=== PATIENT | male | born 1970 | race Caucasian/White ===

== ENCOUNTER 2020-05-27 07:45 | Outpatient (CLI) | payer OTHER, SELFPAY ==
[2020-05-27 10:41] LABS: Alanine Aminotransferase 61 U/L (16-63); Albumin Level 4.1 g/dL (3.4-5.0); Alkaline Phosphatase 107 U/L (46-116); Anion Gap 11 mmol/L (8-16); Aspartate Amino Transferase 26 U/L (15-37); Bilirubin,Total 0.8 mg/dL (0.00-1.00); Blood Urea Nitrogen 16 mg/dL (7-18); Calcium 9.3 mg/dL (8.5-10.1); Carbon Dioxide 25 mmol/L (21-32); Chloride 105 mmol/L (98-108); Cholesterol 220 mg/dL (0-200); Estimated Glomerular Filt Rate > 60; Glucose 113 mg/dL (70-99); HDL Direct 68 mg/dL (40-60); LDL Cholesterol Calculated 136 mg/dL (<130); Osmolality Calculated 294 mOsm/kg (285-295); Potassium 4.6 mmol/L (3.5-5.1); Sodium 141 mmol/L (136-145); Thyroid Stimulating Hormone 1.34 uIU/mL (0.36-3.74); Total Protein 7.8 g/dL (6.4-8.2); Triglycerides 80 mg/dL (0-150)
[2020-05-27 10:47] LABS: Basophils Absolute Auto 0.05 K/mm3 (0.00-0.10); Basophils Percent Auto 0.8 % (0.0-1.0); Eosinophils Absolute Auto 0.19 K/mm3 (0.02-0.50); Eosinophils Percent Auto 2.9 % (1.0-6.0); Hematocrit 40.3 % (40.0-54.0); Hemoglobin 13.7 g/dL (14.0-18.0); Immature Granulocyte Absolute 0.03 K/mm3 (0.00-0.00); Immature Granulocyte Percent A 0.5 % (0.0-0.0); Lymphocytes Absolute Auto 1.24 K/mm3 (1.10-4.50); Lymphocytes Percent Auto 18.8 % (18.0-42.0); Mean Corpuscular Hemoglobin 29.6 pg (27.0-31.0); Mean Platelet Volume 11.7 fl (8.7-11.0); Monocytes Absolute Auto 0.57 K/mm3 (0.10-0.90); Monocytes Percent Auto 8.7 % (2.0-11.0); Neutrophils Absolute Auto 4.5 K/mm3 (1.7-7.2); Neutrophils Percent Auto 68.3 % (50.0-70.0); Platelet Count Result 249 K/mm3 (150-420); Red Blood Count 4.63 M/mm3 (4.70-6.10); White Blood Count 6.6 K/mm3 (4.8-10.8)
[2020-05-28 09:57] LABS: Add Urine Microscopic? NO; Appearance Urine Clear (Clear); Bilirubin Urine Negative (Negative); Blood Urine Negative (Negative); Color Urine Yellow (Yellow); Glucose Urine UA Negative (Negative); Ketones Urine Negative (Negative); Leukocyte Esterase Ur Negative (Negative); Nitrate Urine Negative (Negative); Protein Urine Negative (Negative); Specific Grav Ur 1.025 (1.010-1.020); Urobilinogen Urine 0.2 mg/dL (0.2-1.0)
[2020-05-30 10:55] LABS: Hemoglobin A1C 5.5 % (<5.7)
== END 2020-05-27 07:46 | disposition home or self-care (01) ==
LOC: CHSLAB 07:50
PROVIDERS: PCP Internal Medicine; Visit Provider Internal Medicine
DX: Z00.00 Encounter for general adult medical examination without abnormal findings (principal); Z01.84 Encounter for antibody response examination; R73.01 Impaired fasting glucose
CPT/HCPCS: 36415; 80053; 80061; 81003; 83036; 84443; 85025; 86769

== ENCOUNTER 2022-11-11 23:00 | Emergency (ER) | payer OTHER, SELFPAY ==
[2022-11-11 23:05] VITALS: BP 133/84; PULSE 80; RESP 18; TEMP 36.6; O2SAT 96
--- NOTE | 2022-11-11 23:07 | ED.EAR ---
HPI - Ear Problem General Chief complaint: Ear Stated complaint: Ear Source: patient Mode of arrival: ambulatory Limitations: no limitations History of Present Illness HPI Narrative: 51-year-old male with a history of recurrent sinusitis presents to the ER a 10 hour history of -- tinnitus in the left ear. No hearing loss. No focal neuro deficits. No headache. no vertigo. no ear pain or discharge. Location: left ear Duration: constant Severity: moderate Relieving factors: nothing Exacerbating factors: nothing Discharge from ear: Reports no Treatment prior to arrival: none Related Data Home Medications Medication Instructions Recorded Confirmed albuterol sulfate 90 mcg/actuation 1 inh inhalation Q4-6H PRN 11/11/22 11/11/22 breath activated powder inhaler Shortness Of Breath Or Wheezing duloxetine 20 mg capsule,delayed 20 mg PO DAILY 11/11/22 11/11/22 release montelukast 10 mg tablet 10 mg PO DAILY 11/11/22 11/11/22 (Singulair) pantoprazole 40 mg tablet,delayed 40 mg PO DAILY 11/11/22 11/11/22 release verapamil 240 mg tablet,extended 240 mg PO DAILY 11/11/22 11/11/22 release Allergies Allergy/AdvReac Type Severity Reaction Status Date / Time No Known Allergies Allergy Verified 07/09/19 23:45 Review of Systems Review of Systems: All systems reviewed & are unremarkable except as noted in HPI and below Constitutional: Constitutional: Reports as per HPI and Reports no additional constitutional complaints Eyes: Eyes: Reports as per HPI and Reports no additional eye complaints ENT: Reports system reviewed and no additional complaints, except as documented and Reports as per HPI Comments: History of sinus fullness. Cardiovascular: Cardiovascular: Reports as per HPI and Reports no additional cardiovascular complaints Respiratory: Respiratory: Reports as per HPI and Reports no additional respiratory complaints Gastrointestinal: Gastrointestinal: Reports as per HPI and Reports no additional gastrointestinal complaints Genitourinary: Genitourinary: Reports no additional male genitourinary complaints and Reports as per HPI Musculoskeletal: Musculoskeletal: Reports no additional musculoskeletal complaints and Reports as per HPI Integumentary/Breasts: Skin/Breast: Reports system reviewed and no additional complaints, except as docu and Reports as per HPI Neurologic: Reports system reviewed and no additional complaints, except as documented and Reports as per HPI Psychiatric: Psychiatric: Reports no additional psychiatric complaints and Reports as per HPI Endocrine: Endocrine: Reports no additional endocrine complaints and Reports as per HPI Hematologic/Lymphatic: Hematologic/Lymphatic: Reports no additional hematologic/lymphatic complaints and Reports as per HPI Allergic/Immunologic: Allergic/Immunologic: Reports no additional allergic/immunologic complaints and Reports as per HPI PMFSH Past Medical History Medical History (Updated 11/11/22 @ 23:35 by Flo Galaviz MD) Hypertension No active medical problems Surgical History Surgical History History of elbow surgery Family History Family History Father No problems noted. Social History Social History Alcohol use details: does not drink alcohol Substance use: never Living arrangements: with family Gender identity (if verbalized by the patient): Male Exam Const: General: healthy appearing and no acute distress Nutritional Appearance: well nourished Orientation/consciousness: patient oriented x3 Limitations: no limitations and altered mental status HENMT: Head: normal to inspection Ears: external ears normal ( ear wax. Tympanic membrane is erythematous on the left side) Face/Nose/Sinus: Normal external nose present Face and sinus: normal f
[2022-11-11] MEDS: NEOMYCIN/POLYMYXIN/HYDROCORT OT SUSP 10 ML BTL (*BKC) 3 DROP EACH EAR (23:41)
[2022-11-11] MEDS: AMOXICILLIN/CLAVULANATE K 875-125 MG TAB 1 TABLET PO (23:41)
[2022-11-11 23:52] VITALS: BP 130/79; PULSE 74; RESP 20; O2SAT 97
== END 2022-11-11 23:54 | disposition home or self-care (01) ==
PROVIDERS: Emergency Provider Internal Medicine Critical Care Medicine; PCP Internal Medicine
DX: H66.92 Otitis media, unspecified, left ear (principal); H93.12 Tinnitus, left ear; I10 Essential (primary) hypertension
CPT/HCPCS: 99283; A9270

== ENCOUNTER 2023-02-15 19:12 | Emergency (ER) | payer OTHER, SELFPAY ==
[2023-02-15] VITALS (22 sets, daily range): BP systolic 129–154; BP diastolic 80–95; PULSE 58–85; RESP 13–20; TEMP 37.3; O2SAT 94–97
--- NOTE | ~2023-02-15 | XR_ITS ---
EXAMINATION: XR chest 1V portable 02/15/2023 20:13 INDICATION: Midsternal chest pain PROCEDURE: AP portable chest COMPARISON: No prior studies for comparison. FINDINGS: The lungs are clear. The cardiomediastinal silhouette is within normal limits. There are no pleural effusions. There is no pneumothorax suspected. IMPRESSION: 1: NO ACUTE CARDIOPULMONARY DISEASE. Reviewed, dictated and finalized at location A.
--- NOTE | 2023-02-15 19:20 | ECG_ITS ---
Measurements Intervals [place] Rate: 80 P: 59 VT: 121 QRS: 54 QRSD: 109 T: 60 QT: 365 QTc: 423 Interpretive Statements SINUS RHYTHM INCOMPLETE RIGHT BUNDLE BRANCH BLOCK [90+ ms QRS DURATION, TERMINAL R IN V1/V2, 40+ ms S IN I/aVL/V4/V5/V6] ABNORMAL ECG NO PREVIOUS ECG AVAILABLE FOR COMPARISON Electronically Signed On 02-16-2023 9:16:26 CDT by Kenyon Bob M.D.
[2023-02-15] MEDS: ASPIRIN 81 MG CHEWABLE TABLET 324 MG PO (19:55)
[2023-02-15 19:56] LABS: Basophils Absolute Auto 0.05 K/mm3 (0.00-0.10); Basophils Percent Auto 0.7 % (0.0-1.0); Eosinophils Absolute Auto 0.27 K/mm3 (0.02-0.50); Eosinophils Percent Auto 3.7 % (1.0-6.0); Hematocrit 40.6 % (40.0-54.0); Hemoglobin 14.1 g/dL (14.0-18.0); Immature Granulocyte Absolute 0.03 K/mm3 (0.00-0.00); Immature Granulocyte Percent A 0.4 % (0.0-0.0); Lymphocytes Absolute Auto 2.18 K/mm3 (1.10-4.50); Lymphocytes Percent Auto 29.8 % (18.0-42.0); Mean Corpuscular HGB Conc 34.7 g/dL (32.0-36.0); Mean Corpuscular Hemoglobin 29.6 pg (27.0-31.0); Mean Corpuscular Volume 85.1 fL (78.0-102.0); Mean Platelet Volume 10.7 fl (8.7-11.0); Monocytes Absolute Auto 0.58 K/mm3 (0.10-0.90); Monocytes Percent Auto 7.9 % (2.0-11.0); Neutrophils Absolute Auto 4.2 K/mm3 (1.7-7.2); Neutrophils Percent Auto 57.5 % (50.0-70.0); Platelet Count Result 264 K/mm3 (150-420); Red Blood Count 4.77 M/mm3 (4.70-6.10); Red Cell Distribution Width 12.8 % (11.6-14.4); White Blood Count 7.3 K/mm3 (4.8-10.8)
[2023-02-15] MEDS: ACETAMINOPHEN 500 MG TABLET 1000 MG PO (19:56)
[2023-02-15] MEDS: SODIUM CHLORIDE 0.9% IV 1,000 ML 999 ML IV CONT (19:58)
[2023-02-15 20:15] LABS: Alanine Aminotransferase 45 U/L (16-63); Albumin Level 3.8 g/dL (3.4-5.0); Alkaline Phosphatase 95 U/L (46-116); Anion Gap 10 mmol/L (8-16); Aspartate Amino Transferase 20 U/L (15-37); Bilirubin,Total 0.6 mg/dL (0.00-1.00); Blood Urea Nitrogen 19 mg/dL (7-18); Calcium 9.1 mg/dL (8.5-10.1); Carbon Dioxide 28 mmol/L (21-32); Chloride 103 mmol/L (98-108); Estimated CRCL calculation 76 ml/min; Estimated Glomerular Filt Rate > 60; Glucose 106 mg/dL (70-99); Magnesium 1.9 mg/dL (1.8-2.4); Osmolality Calculated 294 mOsm/kg (285-295); Potassium 4.1 mmol/L (3.5-5.1); Sodium 141 mmol/L (136-145); Total Protein 7.7 g/dL (6.4-8.2); Troponin I 4.7 ng/L (0.00-60.4)
--- NOTE | 2023-02-15 20:21 | ED.GENADULT ---
HPI - General Adult General Chief complaint: Chest Pain Stated complaint: Chest Pain History of Present Illness HPI narrative: This is a 52-year-old male presenting to ED with a chief complaint of chest pain. Chest pain started 1 hour prior to arrival. It was a sharp pain in the center his chest that was nonradiating, 8/10 intensity and resolved after approximately 15 minutes without intervention. He has never experienced pain like this before there are no exacerbating or alleviating factors. during the episode he became pale and diaphoretic but that quickly resolved. No exertional component, no fever chills cough or lower extremity edema. Related Data Home Medications Medication Instructions Recorded Confirmed albuterol sulfate 90 mcg/actuation 1 inh inhalation Q4-6H PRN 11/11/22 02/15/23 breath activated powder inhaler Shortness Of Breath Or Wheezing duloxetine 20 mg capsule,delayed 20 mg PO DAILY 11/11/22 02/15/23 release montelukast 10 mg tablet 10 mg PO DAILY 11/11/22 02/15/23 (Singulair) pantoprazole 40 mg tablet,delayed 40 mg PO DAILY 11/11/22 02/15/23 release verapamil 240 mg tablet,extended 240 mg PO HS 11/11/22 02/15/23 release Allergies Allergy/AdvReac Type Severity Reaction Status Date / Time No Known Allergies Allergy Verified 02/15/23 19:44 [facility] Past Medical History Medical History Hypertension No active medical problems Surgical History Surgical History History of elbow surgery Family History Family History Father No problems noted. Social History Social History Alcohol use details: does not drink alcohol Substance use: never Living arrangements: with family Gender identity (if verbalized by the patient): Male Exam Narrative: APPEARANCE: No apparent distress. Head: atraumatic. EYES: EOMI, NOSE: Atraumatic NECK: Trachea midline RESPIRATORY: No increased rate of breathing , clear to auscultation CARDIOVASCULAR: RRR, no peripheral edema ABDOMINAL: Non-distended MUSCULOSKELETAl: No obvious deformities NEURO: Alert. Moving 4/4 extremities SKIN:: Warm, dry. Normal color PSYCHIATRIC: Normal affect Course Vital Signs Vital signs: Vital Signs Temperature 99.1 F 02/15/23 19:15 Pulse Rate 85 02/15/23 19:15 Respiratory Rate 16 02/15/23 19:15 Blood Pressure 145/95 H 02/15/23 19:15 Pulse Oximetry 95 02/15/23 19:15 Oxygen Delivery Room Air 02/15/23 19:15 Temperature 99.1 F 02/15/23 19:15 Pulse Rate 61 02/15/23 21:01 Respiratory Rate 16 02/15/23 21:01 Blood Pressure 130/85 02/15/23 21:01 Pulse Oximetry 95 02/15/23 21:01 Oxygen Delivery Room Air 02/15/23 19:15 Medical Decision Making MDM Narrative Medical decision making narrative: -Presentation: 52-year-old male presenting with a brief episode of chest pain that has since resolved. -DDX includes but is not limited to: ACS, GERD, esophageal spasm, pneumonia, pleurisy -Co-morbidities complicating care: hypertension, anxiety/depression -Social determinants of health: patient rehabs accounts payable bookkeeper lines. Lives with his Michelle -External Chart Review: review of previous ER notes -Hx from independent Sources: at bedside -Discussion of Management/Consultants: none -Independent interpretation of studies: Independent EKG interpretation: Rhythm [sinus], Rate [80], Likely -[normal], MO -[normal], QRS [narrow], QTC [normal], T waves -[negative for concerning inversions], ST Segments - [Negative for concerning elevations] Final interpretations: [Normal Sinus Rhythm] laboratory studies normal. hs Troponin negative x2. Chest x-ray unremarkable. Dx tests considered but not ordered: PE studies -patient is low risk per Wells criteria and has no shor
--- NOTE | 2023-02-15 21:03 | PC.NURSE ---
Pt remains pain-free. Pt and spouse updated on plan to redraw troponin level at 2200. Pt and spouse voice no new complaints or needs at this time.
--- NOTE | 2023-02-15 22:11 | PC.NURSE ---
Repeat trop drawn and sent. Pt voices no new complaints at this time. Remains NSR without ectopy on personnel monitor. Spouse remains at bedside.
[2023-02-15 22:33] LABS: Troponin I 5.4 ng/L (0.00-60.4)
== END 2023-02-15 22:49 | disposition home or self-care (01) ==
PROVIDERS: Emergency Provider Emergency Medicine; PCP Internal Medicine
DX: R07.89 Other chest pain (principal); I10 Essential (primary) hypertension; F41.9 Anxiety disorder, unspecified; F32.A Depression, unspecified
CPT/HCPCS: 36415; 71045; 80053; 83735; 84484; 85025; 93005; 96360; 99284; A9270; J7030

== ENCOUNTER 2023-05-10 00:55 | Emergency (ER) | payer OTHER, SELFPAY ==
--- NOTE | ~2023-05-10 | XR_ITS ---
XR chest 2V DATE: 05/10/2023 01:19 INDICATION: Cough for one week. Shortness of breath. TECHNIQUE: PA and lateral views COMPARISON: 02/15/2023 portable AP chest FINDINGS: Normal heart size. Mild aortic arch calcification. No hilar or mediastinal enlargement. No pulmonary infiltrate or consolidation, pleural effusion or pulmonary vascular congestion or pneumotho rax. IMPRESSION: No active cardiopulmonary disease Reviewed, dictated and finalized at location A.
[2023-05-10 01:02] VITALS: BP 154/94; PULSE 68; RESP 20; TEMP 36.6; O2SAT 98
--- NOTE | 2023-05-10 01:05 | ECG_ITS ---
Measurements Intervals [place] Rate: 67 P: 73 MN: 141 QRS: 75 QRSD: 104 T: 78 QT: 383 QTc: 405 Interpretive Statements SINUS RHYTHM INCOMPLETE RIGHT BUNDLE BRANCH BLOCK BASELINE ARTIFACT- I, II, III, AVR, AVL, V1-V3 BORDERLINE ECG COMPARED TO ECG 02/15/2023 19:13:42 NO SIGNIFICANT CHANGES Electronically Signed On 05-10-2023 7:03:53 CDT by Misha Gonzales D.O.
--- NOTE | 2023-05-10 01:08 | ED.URI ---
HPI - URI/Sore Throat General Chief Complaint: Upper Respiratory Infection Stated Complaint: cough Time Seen by Provider: 05/10/23 01:05 Source: patient and family Mode of arrival: ambulatory Limitations: no limitations History of Present Illness HPI Narrative: patient is a 52-year-old male with cough and congestion of the chest for the past week. He went to the primary doctor in the given a Medrol Dosepak. He is not on antibiotics at this time. He has been having some minimal phlegm with green thick sputum. MD elicited complaint: cough and nasal congestion Pertinent past history: asthma Onset (ago): week(s) (1) Consistency: constant and progressively worsening Severity: moderate Description of mucous: green Able to tolerate fluids by mouth: Yes Exacerbating factors: supine positioning and other (evening/night is worse) Relieving factors: nothing Associated symptoms: rhinorrhea, nasal congestion and shortness of breath Treatments prior to arrival: none Related Data Home Medications Medication Instructions Recorded Confirmed albuterol sulfate 90 mcg/actuation 1 inh inhalation Q4-6H PRN 11/11/22 05/10/23 breath activated powder inhaler Shortness Of Breath Or Wheezing duloxetine 20 mg capsule,delayed 20 mg PO DAILY 11/11/22 05/10/23 release montelukast 10 mg tablet 10 mg PO DAILY 11/11/22 05/10/23 (Singulair) pantoprazole 40 mg tablet,delayed 40 mg PO DAILY 11/11/22 05/10/23 release verapamil 240 mg tablet,extended 240 mg PO HS 11/11/22 05/10/23 release Allergies Allergy/AdvReac Type Severity Reaction Status Date / Time No Known Allergies Allergy Verified 02/15/23 19:44 Review of Systems Review of Systems: All systems reviewed & are unremarkable except as noted in HPI and below Constitutional: Constitutional: Reports no additional constitutional complaints Eyes: Eyes: Reports no additional eye complaints ENT: Reports system reviewed and no additional complaints, except as documented Cardiovascular: Cardiovascular: Reports no additional cardiovascular complaints Respiratory: Respiratory: Reports no additional respiratory complaints Gastrointestinal: Gastrointestinal: Reports no additional gastrointestinal complaints Genitourinary: Genitourinary: Reports no additional male genitourinary complaints Musculoskeletal: Musculoskeletal: Reports no additional musculoskeletal complaints Integumentary/Breasts: Skin/Breast: Reports system reviewed and no additional complaints, except as docu Neurologic: Reports system reviewed and no additional complaints, except as documented Psychiatric: Psychiatric: Reports no additional psychiatric complaints Endocrine: Endocrine: Reports no additional endocrine complaints Hematologic/Lymphatic: Hematologic/Lymphatic: Reports no additional hematologic/lymphatic complaints Allergic/Immunologic: Allergic/Immunologic: Reports no additional allergic/immunologic complaints PMFSH Past Medical History Medical History Hypertension No active medical problems Surgical History Surgical History History of elbow surgery Family History Family History Father No problems noted. Social History Social History Alcohol use details: does not drink alcohol Substance use: never Living arrangements: with family Gender identity (if verbalized by the patient): Male Exam Const: General: healthy appearing and no acute distress Nutritional Appearance: well nourished Orientation/consciousness: patient oriented x3 HENMT: Head: normal to inspection Ears: external ears normal Face/Nose/Sinus: Normal external nose present Eyes: Conjunctivae: conjunctivae normal Pupils: Equal, round and reactive pupils present EOM: EOMs intact bilaterally N
[2023-05-10 01:26] VITALS: PULSE 56; RESP 18; O2SAT 100
[2023-05-10 01:26] LABS: Basophils Absolute Auto 0.03 K/mm3 (0.00-0.10); Basophils Percent Auto 0.2 % (0.0-1.0); Eosinophils Absolute Auto 0.09 K/mm3 (0.02-0.50); Eosinophils Percent Auto 0.7 % (1.0-6.0); Hematocrit 40.7 % (40.0-54.0); Hemoglobin 13.6 g/dL (14.0-18.0); Immature Granulocyte Percent A 0.8 % (0.0-0.0); Lymphocytes Absolute Auto 2.53 K/mm3 (1.10-4.50); Lymphocytes Percent Auto 20.8 % (18.0-42.0); Mean Corpuscular HGB Conc 33.4 g/dL (32.0-36.0); Mean Corpuscular Hemoglobin 29.2 pg (27.0-31.0); Mean Corpuscular Volume 87.3 fL (78.0-102.0); Mean Platelet Volume 10.3 fl (8.7-11.0); Monocytes Percent Auto 7.4 % (2.0-11.0); Neutrophils Absolute Auto 8.5 K/mm3 (1.7-7.2); Neutrophils Percent Auto 70.1 % (50.0-70.0); Platelet Count Result 285 K/mm3 (150-420); Red Blood Count 4.66 M/mm3 (4.70-6.10); Red Cell Distribution Width 12.8 % (11.6-14.4); White Blood Count 12.2 K/mm3 (4.8-10.8)
[2023-05-10] MEDS: IPRATROPIUM 0.5 MG/ALBUTEROL SULFATE 2.5 MG AMPUL.NEB 3 ML INHALATION (01:26)
[2023-05-10 01:30] VITALS: BP 129/83; PULSE 75; RESP 20; O2SAT 96
[2023-05-10 01:32] VITALS: PULSE 60; RESP 18; O2SAT 100
[2023-05-10] MEDS: predniSONE 20 MG TABLET 40 MG PO (01:34)
[2023-05-10] MEDS: AMOXICILLIN/CLAVULANATE K 875-125 MG TAB 1 TABLET PO (01:34)
[2023-05-10 01:48] LABS: Alanine Aminotransferase 45 U/L (16-63); Albumin Level 3.6 g/dL (3.4-5.0); Alkaline Phosphatase 100 U/L (46-116); Anion Gap 11 mmol/L (8-16); Aspartate Amino Transferase 19 U/L (15-37); Bilirubin,Total 0.6 mg/dL (0.00-1.00); Blood Urea Nitrogen 22 mg/dL (7-18); Carbon Dioxide 26 mmol/L (21-32); Chloride 104 mmol/L (98-108); Estimated CRCL calculation 78 ml/min; Estimated Glomerular Filt Rate > 60; Glucose 155 mg/dL (70-99); NT Pro B Type Natriuretic Pept 36 pg/mL (0-125); Osmolality Calculated 298 mOsm/kg (285-295); Potassium 3.4 mmol/L (3.5-5.1); Sodium 141 mmol/L (136-145); Total Protein 7.4 g/dL (6.4-8.2); Troponin I 4.6 ng/L (0.00-60.4)
[2023-05-10 02:04] LABS: Influenza A QL RT-PCR Negative (Negative); Influenza B QL RT-PCR Negative (Negative); SARS-CoV-2 RNA PCR Negative (Negative)
[2023-05-10] MEDS: POTASSIUM CHLORIDE 20 MEQ ER TABLET PO (02:12)
--- NOTE | 2023-05-10 02:21 | PC.NURSE ---
Pt resting, Dr Brady [facility]. [facility]. Dr Catherine Bhatia agronomy location manager. Exchange # received.
[2023-05-10 02:22] LABS: RSV RNA, RT-PCR Negative (Negative)
[2023-05-10 02:31] VITALS: BP 147/77; PULSE 66; RESP 18; O2SAT 96
--- NOTE | 2023-05-10 02:50 | PC.NURSE ---
Consult c Dr Bhatia requested another trop at 2-3 hr florentino. Pt not wanting to stay since he is feeling better. ERP Dr Brady spoke c pt about results of EKG. Informed all labs are WNL but wanting another trop drawn to recheck. Pt wanting to sign AMA and go home c meds and Rx's for bronchitis given and states he will f/u c his FMD next week.
[2023-05-10 02:55] VITALS: BP 150/84; PULSE 70; RESP 20; TEMP 36.7; O2SAT 95
== END 2023-05-10 03:02 | disposition left against medical advice (07) ==
PROVIDERS: Emergency Provider Emergency Medicine; PCP Internal Medicine
DX: J40 Bronchitis, not specified as acute or chronic (principal); R06.02 Shortness of breath; I10 Essential (primary) hypertension; Z79.899 Other long term (current) drug therapy; Z20.822 Contact with and (suspected) exposure to COVID-19
CPT/HCPCS: 36415; 71046; 80053; 83880; 84484; 85025; 87637; 93005; 94640; 99284; A9270; J7512

== ENCOUNTER 2023-05-13 07:24 | Outpatient (CLI) | payer OTHER, SELFPAY ==
[2023-05-13 08:07] LABS: Creatine Kinase 152 U/L (39-308); Troponin I 5.2 ng/L (0.00-60.4)
== END 2023-05-13 07:25 | disposition home or self-care (01) ==
LOC: CHSLAB 07:28
PROVIDERS: PCP Internal Medicine; Visit Provider Internal Medicine
DX: R07.9 Chest pain, unspecified (principal)
CPT/HCPCS: 36415; 82550; 82553; 84484

== ENCOUNTER 2024-03-26 17:17 | Emergency (ER) | payer SELFPAY ==
--- NOTE | ~2024-03-26 | XR_ITS ---
EXAMINATION: [id number] Exam Date/Time: 03/26/2024 18:20 CDT HISTORY: pain to right posterior ribs after getting out of manhole Comparison: None available. RESULT: Lines, tubes, and devices: None. Lungs and pleura: Minimal linear bibasilar scar/atelectasis, lungs otherwise clear. Cardiothymic silhouette: Stable. Other: No acute osseous or upper abdominal finding. IMPRESSION: No acute cardiopulmonary process. No acute osseous finding in the right ribs. Reviewed, dictated and finalized at location K.
[2024-03-26 17:55] VITALS: BP 173/93; PULSE 60; RESP 16; TEMP 36.7; O2SAT 99
--- NOTE | 2024-03-26 18:13 | ED.UPPEXIN ---
HPI - Extremity Injury (Upper) General Chief Complaint: Extremity Injury, Upper Stated Complaint: Right Shoulder Pain Time Seen by Provider: 03/26/24 18:14 Source: patient, RN notes reviewed and old records reviewed Mode of arrival: ambulatory Limitations: no limitations History of Present Illness HPI narrative: patient presents with complaints of right-sided pain that began 2 days ago when he crawled out of a manhole. He reports that he felt something in his right shoulder pop . He states that since that time, his shoulder feels better, but he noticed his pain in his right ribs/ back that is worse with deep inspiration. He has full range of motion to the right shoulder. He appears comfortable. He reports that he is taking ibuprofen with moderate relief. He denies all other injury and trauma, voices no other concerns or complaints at this time Related Data Home Medications Medication Instructions Recorded Confirmed montelukast 10 mg tablet 10 mg PO DAILY 11/11/22 03/26/24 (Singulair) pantoprazole 40 mg tablet,delayed 40 mg PO DAILY 11/11/22 03/26/24 release verapamil 240 mg tablet,extended 240 mg PO HS 11/11/22 03/26/24 release Allergies Allergy/AdvReac Type Severity Reaction Status Date / Time No Known Allergies Allergy Verified 03/26/24 17:54 Review of Systems Review of Systems: All systems reviewed & are unremarkable except as noted in HPI and below Constitutional: Constitutional: Reports no additional constitutional complaints ENT: Reports system reviewed and no additional complaints, except as documented Cardiovascular: Cardiovascular: Reports no additional cardiovascular complaints Respiratory: Respiratory: Reports as per HPI Comments: right-sided rib pain with deep inspiration Gastrointestinal: Gastrointestinal: Reports no additional gastrointestinal complaints Musculoskeletal: Musculoskeletal: Reports as per HPI PMFSH Past Medical History Medical History Hypertension No active medical problems Surgical History Surgical History History of elbow surgery Family History Family History Father No problems noted. Social History Social History Alcohol use details: does not drink alcohol Substance use: never Living arrangements: with family Gender identity (if verbalized by the patient): Male Comments At the time of my signature, I reviewed and agree with the nursing past medical, surgical, social, and family history. There is no relevant family history pertinent to the patient complaint. Exam Const: General: cooperative, no acute distress, alert and awake Orientation/consciousness: oriented to person, oriented to place and oriented to time HENMT: Head: normal to inspection Resp: Effort & Inspection: normal respiratory effort and able to speak in complete sentences Auscultation: clear to auscultation bilaterally, no crackles, no rales, no rhonchi and no wheezes Cardio: Palpation: normal PMI Rate: regular rate Rhythm: regular rhythm Heart sounds: S1 normal heart sound present and S2 normal heart sound present Back/Spine/Pelvis: Back/spine/pelvis image: 1. point tenderness on palaption Neuro: General: oriented to person, oriented to place and oriented to time Cranial nerves: Yes CN's II-XII intact bilaterally Extrem: General: normal to inspection and full ROM Right upper extremity: normal to inspection, full ROM and normal capillary refill Psych: Appearance: grossly normal Thought process: Normal thought process present Insight: Good insight present (Psych) Judgement: Good judgement present (Psych) Course Course Level of Care: Express Care Visit Vital Signs Vital signs: Vital Signs Temperature 98.1 F 03/26/24 17
[2024-03-26 19:10] VITALS: BP 144/92
== END 2024-03-26 19:11 | disposition home or self-care (01) ==
PROVIDERS: Emergency Provider Nurse Practitioner Family
DX: M94.0 Chondrocostal junction syndrome [Tietze] (principal); I10 Essential (primary) hypertension
CPT/HCPCS: 71101; 99213; G0463

== ENCOUNTER 2024-12-25 07:59 | Outpatient (CLI) | payer OTHER, SELFPAY ==
--- OUTSIDE RECORDS SUMMARY | 2024-12-25 08:03 | XMS_ITS | Clinical Summary ---
Author Organization [facility] Address [address] [place] [address] Care Team Providers Care Dispensary Clerk Name Role Phone Adilson Beard MD Primary Care Provider [phone] Allergies No known active allergies Medications montelukast (SINGULAIR) 10 MG tablet Take 1 tablet (10 mg total) by mouth nightly at bedtime. Active verapamil ER (VERELAN PM) 240 MG 24 hr capsule Take 1 capsule (240 mg total) by mouth nightly at bedtime. Active pantoprazole EC (PROTONIX) 40 MG tablet Take 1 tablet (40 mg total) by mouth daily. Active Social History Tobacco Use Types Packs/Day Years Used Date Smoking Tobacco: Never Smokeless Tobacco: Current Chew Tobacco Cessation:Ready to Q uit: Not Asked Alcohol Use Standard Drinks/Week Comments Yes 0 (1 standard drink = 0.6 oz pur e alcohol) Sex and Gender Information Value Date Recorded Sex Assigned at Not on file Legal Sex Male 4:52 PM CDT Gender Identity Not on file Sexual Orientation Not on file Last Filed Vital Signs Vital Sign Reading Time Taken Comments Blood Pressure 131/86 02/05/2024 1:00 PM CDT Pulse 67 02/05/2024 1:00 PM CDT Temperature 36.4 C (97.6 F) 02/05/2024 12:29 PM CDT Respiratory Rate 20 02/05/2024 1:00 PM CDT Oxygen Saturation 94% 02/05/2024 1:00 PM CDT Inhaled Oxygen Concentration - - Weight 109.7 kg (241 lb 14.4 oz) 2023 12:29 PM CDT Height 193 cm (6' 4 ) 02/05/2024 12:29 PM CDT Body Mass Index 29.44 02/05/2024 12:29 PM CDT Plan of Treatment Health Maintenance Due Date Last Done Comments Colorectal Cancer Screening Colonoscopy (10 Years) 1970 Annual Physical 1973 Hepatitis C 1988 DTaP, Tdap and Td Vaccines ( 1 - Tdap) 1989 Hepatitis B Vaccines (1 of 3 - 19+ 3-dose series) 1989 Pneumococcal Vaccine: 50+ Years (1 of 1 - PCV) 2020 Zoster Vaccines (1 of 2) 2020 COVID-19 Vaccine (3 - 2023-2 5 season) 2024 08/04/2021, 07/14/2021 Meningococcal B Vaccine Aged Out No l onger eligible based on patient's age to complete this topic Meningococcal Vaccine Aged Out No brendon juani eligible based on patient's age to complete this topic RSV Immunizations Under 20 Months Aged Out No longer eligible b ased on patient's age to complete this topic Care Teams Dispensary Clerk Relationship Specialty Start Date End Date Adilson Beard MD [address] [place] [address] PCP - General INTERNAL MEDICINE 02/05/24
--- OUTSIDE RECORDS SUMMARY | 2024-12-25 08:03 | XMS_ITS | Clinical Summary ---
Author Organization 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
[2024-12-25 08:18] LABS: Basophils Absolute Auto 0.06 K/mm3 (0.00-0.10); Basophils Percent Auto 0.7 % (0.0-1.0); Eosinophils Absolute Auto 0.44 K/mm3 (0.02-0.50); Eosinophils Percent Auto 5.3 % (1.0-6.0); Hemoglobin 14.1 g/dL (14.0-18.0); Immature Granulocyte Absolute 0.04 K/mm3 (0.00-0.00); Immature Granulocyte Percent A 0.5 % (0.0-0.0); Lymphocytes Percent Auto 25.3 % (18.0-42.0); Mean Corpuscular HGB Conc 33.6 g/dL (32-36); Mean Corpuscular Hemoglobin 28.2 pg (27.0-31.0); Mean Platelet Volume 10.1 fl (8.7-11.0); Monocytes Percent Auto 7.2 % (2.0-11.0); Neutrophils Absolute Auto 5.06 K/mm3 (1.70-7.20); Platelet Count Result 300 K/mm3 (150-420); Red Cell Distribution Width 13.3 % (11.6-14.4); White Blood Count 8.3 K/mm3 (4.8-10.8)
[2024-12-25 08:57] LABS: Alanine Aminotransferase 74 U/L (16-63); Alkaline Phosphatase 125 U/L (46-116); Anion Gap 10 mmol/L (4-12); Aspartate Amino Transferase 31 U/L (15-37); Bilirubin,Total 0.9 mg/dL (0.00-1.00); Blood Urea Nitrogen 22 mg/dL (7-18); Calcium 9.1 mg/dL (8.5-10.1); Carbon Dioxide 27 mmol/L (21-32); Chloride 104 mmol/L (98-108); Cholesterol 222 mg/dL (0-200); Estimated Glomerular Filt Rate 59; Glucose 121 mg/dL (70-99); HDL Direct 58 mg/dL (40-60); LDL Cholesterol Calculated 139 mg/dL (<130); Osmolality Calculated 296 mOsm/kg (285-295); Potassium 4.1 mmol/L (3.5-5.1); Prostate Specific Antigen 3.7 ng/mL (< OR = 4.0); Sodium 141 mmol/L (136-145); Thyroid Stimulating Hormone 1.42 uIU/mL (0.36-3.74); Total Protein 7.8 g/dL (6.4-8.2); Triglycerides 125 mg/dL (0-150)
[2024-12-28 07:08] LABS: LH 1.8 mIU/mL (1.5-9.3)
== END 2024-12-25 08:00 | disposition home or self-care (01) ==
LOC: CHSLAB 08:01
PROVIDERS: PCP Internal Medicine; Visit Provider Internal Medicine
DX: I10 Essential (primary) hypertension (principal); J45.909 Unspecified asthma, uncomplicated; N52.9 Male erectile dysfunction, unspecified
CPT/HCPCS: 36415; 80053; 80061; 83002; 83036; 84153; 84402; 84403; 84443; 85025; G0103

== ENCOUNTER 2024-12-27 14:24 | Outpatient (CLI) | payer OTHER, SELFPAY ==
[2024-12-27 14:33] LABS: Add Urine Microscopic? NO; Appearance Urine Clear (Clear); Bilirubin Urine Negative (Negative); Blood Urine Negative (Negative); Color Urine Light Yellow (Yellow); Glucose Urine UA Negative (Negative); Ketones Urine Negative (Negative); Leukocyte Esterase Ur Negative (Negative); Nitrate Urine Negative (Negative); Protein Urine Negative (Negative); Specific Grav Ur 1.015 (1.010-1.020); Urobilinogen Urine 0.2 mg/dL (0.2-1.0); pH Urine 5.5 (5.0-8.0)
--- OUTSIDE RECORDS SUMMARY | 2024-12-27 16:31 | XMS_ITS | Clinical Summary ---
Author Organization 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
--- OUTSIDE RECORDS SUMMARY | 2024-12-27 16:31 | XMS_ITS | Clinical Summary ---
Author Organization [facility] Address [address] [place] [address] Care Team Providers Care Waste Disposal Plant Operator Name Role Phone Adilson Beard MD Primary Care Provider [phone] Allergies No known active allergies Medications montelukast [...] age to complete this topic Care Teams Waste Disposal Plant Operator Relationship Specialty Start Date End Date Adilson Beard MD [address] [place] [address] PCP - General INTERNAL MEDICINE 02/05/24
== END 2024-12-27 14:25 | disposition home or self-care (01) ==
LOC: CHSLAB 14:25
PROVIDERS: PCP Internal Medicine; Visit Provider Internal Medicine
DX: Z00.00 Encounter for general adult medical examination without abnormal findings (principal); I10 Essential (primary) hypertension; J45.909 Unspecified asthma, uncomplicated; N52.9 Male erectile dysfunction, unspecified
CPT/HCPCS: 81003

== ENCOUNTER 2025-06-26 08:02 | Emergency (ER) | payer OTHER, SELFPAY ==
--- NOTE | ~2025-06-26 | XR_ITS ---
Examination: XR foot RT min 3V Clinical History: Fall, medial Rt. foot pain/gait disturbance x3 wks;worsening Comparison: None Technique: 3 views right foot Findings/impression: 1. No fracture or dislocation. Reviewed, dictated and finalized at location R.
--- OUTSIDE RECORDS SUMMARY | 2025-06-26 08:06 | XMS_ITS | Clinical Summary ---
Author Organization [facility] Address [address] [place] [address] Care Team Providers Care Watch Parts Inspector Name Role Phone Adilson Beard MD Primary Care Provider [phone] Allergies No known active allergies Medications montelukast [...] 12:29 PM CDT Height 193 cm (6' 4) 02/05/2024 12:29 PM CDT Body Mass Index [...] of 2) 2020 COVID-19 Vaccine (3 - 2024-2 6 season) 2025 08/04/2021, 07/14/2021 Influenza Adult (#1) 2025 07/01/2017, 06/27/2017, 07/26/2013 Hepatitis A Vaccines Aged Out No long er eligible based on patient's age to complete this topic Meningococcal B Vaccine Aged Out No l onger eligible based on patient's age to complete this topic Meningococcal Vaccine Aged Out No brendon juani eligible based on patient's age to complete this topic RSV Immunizations Under 20 Months Aged Out No longer eligible b ased on patient's age to complete this topic Care Teams Watch Parts Inspector Relationship Specialty Start Date End Date Adilson Beard MD [address] [place] [address] PCP - General INTERNAL MEDICINE 02/05/24
[2025-06-26 08:10] VITALS: BP 148/97; PULSE 66; RESP 14; TEMP 36.4; O2SAT 99
--- NOTE | 2025-06-26 08:15 | ED.LOWEXIN ---
HPI - Extremity Injury (Lower) General Chief Complaint: Extremity Injury, Lower Stated Complaint: foot pain Time Seen by Provider: 06/26/25 08:14 Source: patient Mode of arrival: ambulatory Limitations: no limitations History of Present Illness HPI Narrative: patient complaining of pain at the right 1st metatarsophalangeal joint pain started last night. Patient reports something heavy fell on the top of his right foot 3 weeks ago chief lasted for few days with complete improvement. Patient denies any recent new activities or trauma. Related Data Home Medications ?Medication ?Instructions ?Recorded ?Confirmed ?Last Taken ?Type montelukast 10 mg tablet 10 mg PO DAILY 11/11/22 03/26/24 Unknown History (Singulair) pantoprazole 40 mg tablet,delayed 40 mg PO Q12H 11/11/22 03/26/24 Unknown History release verapamil 240 mg tablet,extended 240 mg PO HS 11/11/22 03/26/24 02/14/23 History release duloxetine 20 mg capsule,delayed 20 mg PO DAILY 06/26/25 Unknown History release Allergies Allergy/AdvReac Type Severity Reaction Status Date / Time No Known Allergies Allergy Verified 06/26/25 08:12 Review of Systems Review of Systems: All systems reviewed & are unremarkable except as noted in HPI and below PMFSH Past Medical History Medical History Hypertension No active medical problems Surgical History Surgical History History of elbow surgery Family History Family History Father No problems noted. Social History Social History Alcohol use details: does not drink alcohol Substance use: never Living arrangements: with family Gender identity (if verbalized by the patient): Male Exam Narrative: General appearance: Well-developed, well-nourished Skin: Normal color Vascular: Normal peripheral pulses, normal capillary refill. Musculoskeletal: Diffuse tenderness right 1st metatarsophalangeal joint, slightly swollen, worse with flexion or extension of the big toe Neurologic: Alert and oriented ?3, [employer] is normal as tested, no gross motor deficit MDM - Extremity Injury (Lower) MDM Narrative Medical decision making narrative: acute gouty arthritis is my concern. X-ray of the right foot showed no acute osseous abnormality. Discharged home on indomethacin Differential Diagnosis Differential diagnosis: Likely other ( right big toe sprain/ strain versus gouty arthritis) Imaging Data My impression: x-ray of the right foot showed no acute osseous abnormality Critical Care Time Critical Care Time Critical Care Time: No Discharge Plan Discharge Clinical Impression: Podagra Patient Disposition: Home Condition: Stable Instructions: Gout (ED) Additional Instructions: Return if symptoms are worsening , call your family physician for appointment, take Tylenol as as needed for aches and pain, continue home medications. Keep foot elevated, avoid bearing weight on the right foot for 2-3 days, Patient Language: Spanish Prescriptions: New indomethacin 75 mg capsule, extended release 75 mg PO BID Qty: 10 0RF No Action pantoprazole 40 mg tablet,delayed release (DR/EC) 40 mg PO Q12H verapamil 240 mg tablet extended release 240 mg PO HS montelukast [Singulair] 10 mg Tablet 10 mg PO DAILY duloxetine 20 mg capsule,delayed release(DR/EC) 20 mg PO DAILY Follow-up/Referrals: Adilson Beard MD [Primary Care Provider, Internal Medicine]
--- NOTE | 2025-06-26 08:54 | PC.NURSE ---
On 06/26/25, the student, [hair sexton ], provided care and completed [employer] documentation on this patient. I have reviewed the student's documentation and agree with the findings.
== END 2025-06-26 08:49 | disposition home or self-care (01) ==
LOC: CHSED 08:27
PROVIDERS: Emergency Provider Emergency Medicine; PCP Internal Medicine
DX: M10.9 Gout, unspecified (principal); I10 Essential (primary) hypertension
CPT/HCPCS: 73630; 99283